=== PATIENT | male | born 1985 | race Caucasian/White ===

== ENCOUNTER 2017-10-09 00:52 | Emergency (ER) | payer OTHER ==
[2017-10-09] MEDS ORDERED: Lidocaine 1%* 5 ML VIAL ONE (02:02)
[2017-10-09] MEDS ORDERED: Amoxicillin/Clavulanate TAB* 875 MG PO ONE (02:03)
[2017-10-09] MEDS ORDERED: Lidocaine 1%* 5 ML VIAL INJ ONE (02:04)
[2017-10-09 03:12] VITALS: BP 127/60
--- NOTE | 2017-10-09 05:18 | ED ---
Les Martinez Tiffany, scribed for Singh Corral MD on 10/09/17 at 0209 . Bite Injury/Animal - HPI Summary HPI Summary: 32 year old M presenting to [facility] complains of bite on R forearm from Irish monterroso with no known rabies at 23:00 yesterday. The patient rates the pain 3/ 10 in severity. Symptoms aggravated by nothing. Symptoms alleviated by nothing. Patient is a student at [employer], is vaccinated for rabies and is up to date with his tetanus shot. - History of Current Complaint Chief Complaint: EDAnimalBite Stated Complaint: DOG BITE Time Seen by Provider: 10/09/17 01:57 Hx Obtained From: Patient Onset of Injury: Still Present Type of Bite: Animal - Irish monterroso Severity Currently: Mild Pain Intensity: 3 Pain Scale Used: 0-10 Numeric Aggravating Factor(s): Nothing Alleviating Factor(s): Nothing - Allergies/Home Medications Allergies/Adverse Reactions: Allergies Allergy/AdvReac Type Severity Reaction Status Date / Time No Known Allergies Allergy Verified 10/09/17 00:57 PMH/Surg Hx/FS Hx/Imm Hx Previously Healthy: Yes Endocrine/Hematology History: Denies: Hx Diabetes Respiratory History: Denies: Hx Asthma - Surgical History Surgery Procedure, Year, and Place: NONE Infectious Disease History: No Infectious Disease History: Denies: Traveled Outside the [place] in Last 30 Days - Family History Known Family History: Positive: Other - Reviewed and non contributory - Social History Occupation: Student - At [employer] Hx Substance Use: No Substance Use Type: Reports: None Hx Tobacco Use: No Smoking Status (MU): Never Smoked Tobacco Review of Systems Negative: Fever Positive: Other - bite on R forearm All Other Systems Reviewed And Are Negative: Yes Physical Exam - Summary Physical Exam Summary: Appearance: Well appearing, no pain distress Skin: single puncture on dorsal R forearm with a little knick just distal to that. also has abrasions volar forearm Head/face: normal Eyes: EOMI, JOHN ENT: normal Neck: supple, non-tender Respiratory: CTA, breath sounds present Cardiovascular: RRR, pulses symmetrical Abdomen: non-tender, soft Bowel Sounds: present Musculoskeletal: normal, strength/ROM intact Neuro: normal, sensory motor intact, A&Ox3 Triage Information Reviewed: Yes Vital Signs On Initial Exam: Initial Vitals Temp Pulse Resp BP Pulse Ox 98.1 F 58 16 134/58 98 10/09/17 00:54 10/09/17 00:54 10/09/17 00:54 10/09/17 00:54 10/09/17 00:54 Vital Signs Reviewed: Yes Procedures - Procedure Summary Procedure Summary: Wound care: The puncture wound from dog bite in the right forearm was anesthetized with a total of 2 cc of 1% lidocaine directly through the wound. It was irrigated out under pressure through a 20-gauge angiocatheter with sterile saline, 150 cc total. The wound was left open and dressed with dry gauze and Curlex wrap. He tolerated this well without complication. Diagnostics - Vital Signs Vital Signs Temp Pulse Resp BP Pulse Ox 10/09/17 00:54 98.1 F 58 16 134/58 98 - Laboratory Lab Statement: Any lab studies that have been ordered have been reviewed, and results considered in the medical decision making process. 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 The wound was irrigated out and dressed. He was started on Augmentin. Wound will be left open. Follow-up with primary care physician. - Diagnoses Provider Diagnosis: Dog bite, Puncture wound Discharge - Sign-Out/Discharge Documenting (check all that apply): Discharge/Admit/Transfer - Discharge - Discharge Plan Condition: Improved Disposition: HOME Prescriptions: Amoxicillin/Clavulanate TAB* [Augmentin TAB 875*] 875 mg PO BID #14 tab Patient Education Materials: Animal Bite (ED) Referrals: [facility] [Provider Group] No Primary Care Phys,[facility] [Primary Care Provider] - Additional Instructions: Keep clean and dry. Return with increasing redness, discharge from the wound, fevers, worse or other concerns. - Billing Disposition and Condition Condition: IMPROVED Disposition: Home The documentation as recorded by the Les yuen Tiffany accurately reflects the service I personally performed and the decisions made by , Singh Corral MD.
== END 2017-10-09 02:50 | disposition home or self-care (01) ==
LOC: ED 00:52
DX: S51.851A Open bite of right forearm, initial encounter (principal); W54.0XXA Bitten by dog, initial encounter; Y92.9 Unspecified place or not applicable
CPT/HCPCS: 99282; A9270-GY